=== PATIENT | female | born 1955 | race Caucasian/White ===

== ENCOUNTER → 2017-10-05 | Outpatient (CLI) | payer OTHER ==
[2017-10-05 15:15] LABS: ABSOLUTE BASOPHILS # (AUTO) 0.1 10^3/uL (0.0-0.2); ABSOLUTE EOSINOPHILS # (AUTO) 0.2 10^3/uL (0.0-0.6); ABSOLUTE LYMPHOCYTES (AUTO) 1.4 10^3/uL (0.5-4.7); ABSOLUTE MONOCYTES (AUTO) 0.4 10^3/uL (0.1-1.4); ABSOLUTE NEUT (AUTO) 2.1 10^3/uL (1.7-8.2); BASOPHILS % (AUTO) 1.7 % (0-2); EOSINOPHILS % (AUTO) 4.2 % (0-6); HEMATOCRIT 36.1 % (36.0-47.0); LYMPHOCYTES % (AUTO) 33.5 % (13-45); MEAN CORPUSCULAR HEMOGLOBIN 28.9 pg (27.0-33.4); MEAN CORPUSCULAR HGB CONC 33.2 g/dL (32.0-36.0); MEAN CORPUSCULAR VOLUME 87 fl (80-97); MONOCYTES % (AUTO) 9.5 % (3-13); PLATELET COUNT 235 10^3/uL (150-450); RED BLOOD COUNT 4.15 10^6/uL (3.72-5.28); RED CELL DISTRIBUTION WIDTH 12.7 % (11.5-14.0); SEGMENTED NEUTROPHILS % (AUTO) 51.1 % (42-78); TOTAL CELLS COUNTED % (AUTO) 100 %; WHITE BLOOD COUNT 4.1 10^3/uL (4.0-10.5)
[2017-10-05 15:29] LABS: ANION GAP 11 (5-19); BLOOD UREA NITROGEN 24 mg/dL (7-20); CALCIUM 9.7 mg/dL (8.4-10.2); CARBON DIOXIDE 30 mmol/L (22-30); CHLORIDE 103 mmol/L (98-107); GLUCOSE 93 mg/dL (75-110); POTASSIUM 4.6 mmol/L (3.6-5.0); SODIUM 143.5 mmol/L (137-145)
[2017-10-05 15:31] LABS: AMORPHOUS SEDIMENT,URINE TRACE /HPF; APPEARANCE,URINE SLIGHTLY-CLOUDY; BILIRUBIN,URINE NEGATIVE (NEGATIVE); COLOR,URINE YELLOW; GLUCOSE, URINE NEGATIVE (NEGATIVE); KETONES,URINE NEGATIVE (NEGATIVE); LEUKOCYTE ESTERASE,URINE MODERATE (NEGATIVE); NITRITE,URINE NEGATIVE (NEGATIVE); PROTEIN,URINE NEGATIVE (NEGATIVE); URINE SPECIFIC GRAVITY 1.025; UROBILINOGEN,URINE NEGATIVE mg/dL (<2.0)
--- NOTE | 2017-10-05 15:43 | RADIOLOGY REPORT (SQ) ---
EXAM DESCRIPTION: CHEST PA/LATERAL COMPLETED DATE/TIME: 10/05/2017 2:33 pm REASON FOR STUDY: PRE OP COMPARISON: None. EXAM PARAMETERS: NUMBER OF VIEWS: two views TECHNIQUE: Digital Frontal and Lateral radiographic views of the chest acquired. RADIATION DOSE: NA LIMITATIONS: none FINDINGS: LUNGS AND PLEURA: No opacities, masses or pneumothorax. No pleural effusion. MEDIASTINUM AND HILAR STRUCTURES: No masses or contour abnormalities. HEART AND VASCULAR STRUCTURES: Heart normal size. No evidence for failure. BONES: No acute findings. HARDWARE: None in the chest. OTHER: No other significant finding. IMPRESSION: NO SIGNIFICANT RADIOGRAPHIC FINDING IN THE CHEST. TECHNICAL DOCUMENTATION: JOB ID: [id number] [employer]- All Rights Reserved
--- NOTE | 2017-10-05 18:38 | EKG REPORT ---
SEVERITY:- NORMAL ECG - SINUS RHYTHM : Confirmed by: Riley Colunga MD 05-Oct-2017 18:38:24
== END ==
LOC: OD 13:23
PROVIDERS: ATTEND Orthopaedic Surgery
DX: Z01.818 Encounter for other preprocedural examination (principal)
CPT/HCPCS: 36415; 71046; 80048; 81001; 85025; 93005; 93010

== ENCOUNTER 2017-10-17 08:06 | Inpatient (IN) | payer OTHER ==
[~2017-10-17 08:06] MED LIST: BUPIVACAINE INJ/PF LIPOSOME/PF 266 MG/20 ML SDV ONE; CEFAZOLIN 2 GM/D5W RTU 2 GM/50 ML RTUPB IV PRN; DEXAMETHASONE SOD PHOSPHATE INJ 4 MG/1 ML VIAL ONE; GLYCOPYRROLATE INJ 0.4 MG/2 ML VIAL ONE; LACTATED RINGERS 1000 ML IV PRN; LIDOCAINE 0.5% INJ-PF (5 MG/ML) 50 ML SDV SUBCUT PRN; PHENYLEPHRINE HCL INJ/PF 10 MG/1 ML SDV ONE; SUCCINYLCHOLINE CHLORIDE INJ 200 MG/10 ML VIAL ONE
[2017-10-17] MEDS ORDERED: FENTANYL CITRATE INJ/PF 100 MCG/2 ML AMPUL ONE (10:04)
[2017-10-17] MEDS ORDERED: EPHEDRINE SULFATE INJ 50 MG/1 ML AMPULE ONE (10:04)
[2017-10-17] MEDS ORDERED: MIDAZOLAM 2 MG/2 ML INJ ONE (10:04)
[2017-10-17] MEDS ORDERED: HYDROMORPHONE HCL INJ/PF 2 MG/ML AMPULE ONE (10:04)
[2017-10-17] MEDS ORDERED: PROPOFOL INJ 200 MG/20 ML VIAL IV ONE (10:05)
[2017-10-17] MEDS ORDERED: TRANEXAMIC ACID INJ/PF 1,000 MG/10 ML SDV IV ONE (10:05)
[2017-10-17] MEDS ORDERED: OXYCODONE-ACETAMINOPHEN 5-325 MG TABLET PO PRN ×2 (11:29)
[2017-10-17] MEDS ORDERED: MEPERIDINE HCL/PF INJ 25 MG/1 ML DISP.SYRIN IV PRN (11:29)
[2017-10-17] MEDS ORDERED: PROMETHAZINE HCL INJ 25 MG/1 ML VIAL IV PRN ×2 (11:29)
[2017-10-17] MEDS ORDERED: DIPHENHYDRAMINE HCL 50 MG/ML VIAL IV PRN ×2 (11:29→13:26)
[2017-10-17] MEDS ORDERED: FENTANYL CITRATE INJ/PF 100 MCG/2 ML AMPUL IV PRN ×3 (11:29)
[2017-10-17] MEDS ORDERED: ONDANSETRON HCL INJ/PF 4 MG/2 ML SDV IV PRN (11:29)
[2017-10-17] MEDS ORDERED: MORPHINE SULFATE 10 MG/ML INJ IV PRN ×3 (11:29→13:26)
[2017-10-17] MEDS ORDERED: MORPHINE SULFATE 10 MG/ML INJ IM PRN (13:26)
[2017-10-17] MEDS ORDERED: ONDANSETRON 4 MG TAB.RAPDIS PO PRN (13:26)
--- NOTE | 2017-10-17 13:26 | Operative Report ---
Operative Report DATE OF SURGERY: 10/17/17 PREOPERATIVE DIAGNOSIS: Right rotator cuff arthropathy POSTOPERATIVE DIAGNOSIS: Same OPERATION: Right reverse total shoulder arthroplasty SURGEON: SHEREE ESTRADA ANESTHESIA: GA COMPLICATIONS: None ESTIMATED BLOOD LOSS: 300cc PROCEDURE: Indication for above procedure: Pleasant 62-year-old female who underwent rotator cuff repair in the past for right shoulder discomfort. She continues to have discomfort with significant degenerative changes consistent with rotator cuff arthropathy on radiographs. We discussed these findings and treatment options. Patient failed conservative management and thus decision was made to proceed with operative intervention. Risks and benefits were explained to the patient patient verbalized understanding consented for the procedure. Procedure In Detail: Patient was seen and evaluated in the preoperative holding area. The RIGHT upper extremity was initialized and marked. Patient received 2g of Ancef IV for bacterial prophylaxis. Patient was taken back to the operative room where transferred to the operative table and placed under general anesthesia. Once they were adequately anesthetized patient was placed in the beachchair position. Bilateral lower extremities and left upper extremity were carefully padded and the cervical spine placed in neutral position.. A surgical team debriefing was performed ensuring all instrumentation was available, the surgical procedure was discussed with possible concerns reviewed. The upper extremity was prepped with ChloraPrep and draped in a sterile fashion. A timeout was done identifying correct patient, procedure and extremity everyone in attendance agree with this and verbalized no concerns. Deltopectoral interval was utilized with the skin incision just proximal to the coracoid and towards the distal lateral third of the humerus. Blunt dissection was performed. The cephalic vein was identified and retracted in a lateral direction. A small peripheral bleeding was coagulated with cautery. Patient has significant superior migration of the humerus. I then developed the subdeltoid space to allow for easy retraction. The axillary nerve was palpated medially and protected throughout the entirety of the case. 3 peripheral bleeders along the humeral neck were identified and coagulated with cautery. I then released the subscapularis muscle tagging it medially with 2-0 FiberWire suture to allow for later repair. The biceps tendon was identified and removed and a soft tissue tenodesis was performed proximally. The proximal centimeter of the pectoralis major was released to allow for easy exposure. The humerus was then exposed. Patient had complete rotator cuff loss. Previous suture anchors were removed. I then reamed up to an 8 stock handler. The cutting jig was then secured with 30 of retroversion and the humeral head excised and sent to pathology. I then proceeded with broaching up to an size 8 broach. There was this was then removed and the wound copiously irrigated with normal saline I proceeded with exposure of the glenoid. Capsulotomy was made with special care protecting the inferior portion of the glenoid neck where the axillary nerve was identified. Once I released the capsule circumferentially the labrum was excised including any remnant biceps tendon insertion. I then used the bike met the central portion of the glenoid was then drilled with the guidepin. The glenoid was reamed until adequate cancellus bone along the inferior portion. The mini baseplate was chosen and impacted into position. I had good secure fit of the baseplate at the glenoid. The central guide hole was then drilled and the appropriate size compression screw placed obtaining excellent fixation. I then completed fixation with 3 additional locking screws superior, inferior and posterior. The size 36 mm glenosphere was then impacted into position. With a hemostat ensured appropriate fit no loosening. The wound was then copiously irrigated with normal saline once again I proceeded with humeral preparation. Once again a 8 mm stem was chosen but given patient's significant osteopenia proximally I chose a standard 8 mm x 122 mm primary shoulder strength. And trialed a 44 mm standard humeral tray. Patient had excellent stability with full passive motion forward flexion abduction no evidence of impingement. Thus a standard 44 mm tray was impacted. The wound was then copiously irrigated with Arisept. Any bleeding was controlled until the wound was dry. Subscapularis was secured with bone tunnels through the humerus and through the remanent subscapularis with 2-0 FiberWire. There is good stability of the subscapularis up to 50 of external rotation. 40 cc of 50: 50 mixture of saline and Exparel were injected in the soft tissues. The deltopectoral interval was closed with interrupted 0 Vicryl suture. Subcutaneous tissues closed with 2-0 Vicryl suture. Skin closed with running subcuticular 3-0 Monocryl reinforced with Dermabond and Steri-Strips. Sponge counts, instrument counts, needle counts counts were correct. Patient was then awoken from anesthesia. Transferred from the operating room table to the operating room stretcher. There was no intraoperative complications patient tolerated procedure well stable to PACU. Postoperative plan: Patient will be admitted for observation and follow-up in the office 2 weeks postoperatively. Will obtain radiographs in the office. Patient will be started on enteric-coated aspirin 325 mg daily for DVT prophylaxis as an outpatient and Xarelto as an inpatient. IMPLANTS: Biomet comprehensive reverse total shoulder: Primary stem 8 mm x 122 mm, humeral tray with locking ring 44 mm standard, humeral bearing glenosphere 44 mm , 36 mm of curvature with mini baseplate.
[2017-10-17] MEDS ORDERED: RINGERS SOLUTION,LACTATED 1,000 ML IV PRN ×2 (13:28→17:42)
[2017-10-17] MEDS: FENTANYL CITRATE INJ/PF 100 MCG/2 ML AMPUL ONE ×2 (14:00→14:05)
--- NOTE | 2017-10-17 15:18 | RADIOLOGY REPORT (SQ) ---
EXAM DESCRIPTION: SHOULDER RIGHT 2 OR MORE VIEWS COMPLETED DATE/TIME: 10/17/2017 2:53 pm REASON FOR STUDY: Total Shoulder M19.111 POST-TRAUMATIC OSTEOARTHRITIS, RIGHT SHOULDER COMPARISON: Two-view chest 10/05/2017 NUMBER OF VIEWS: AP and Y-view TECHNIQUE: AP and Y-view images acquired of the right shoulder. LIMITATIONS: Artifact from shoulder brace FINDINGS: Post right shoulder arthroplasty, anchoring screws into the bony glenoid, non cemented hum eral prosthesis. Grossly normal alignment. No fracture. Small amount of soft tissue gas present. There is right basilar atelectasis. Ribs are osteopenic without acute fracture. IMPRESSION: Post right shoulder arthroplasty TECHNICAL DOCUMENTATION: JOB ID: [id number] [employer]- All Rights Reserved
[2017-10-17] MEDS: CEFAZOLIN 2 GM/D5W RTU 2 GM/50 ML RTUPB IV SCH (17:44)
[2017-10-17] MEDS: KETOROLAC TROMETHAMINE INJ/PF 30 MG/1 ML SDV IV SCH (17:44)
[2017-10-17] MEDS ORDERED: NORMAL SALINE 1000 ML 1,000 ML IV ONE (17:45)
[2017-10-17] MEDS: PREGABALIN 75 MG CAPSULE PO SCH (17:45)
[2017-10-17] MEDS ORDERED: CELECOXIB 200 MG CAPSULE PO SCH (18:00)
[2017-10-17] MEDS ORDERED: ACETAMINOPHEN 100 ML IV ONE (19:26)
[2017-10-17] MEDS: OXYCODONE HCL SR 10 MG TABLET PO SCH (21:15)
[2017-10-17] MEDS: CELECOXIB 200 MG CAPSULE PO SCH (21:17)
[2017-10-17] MEDS: RIVAROXABAN 10 MG TABLET PO SCH (21:18)
[2017-10-18] MEDS: KETOROLAC TROMETHAMINE INJ/PF 30 MG/1 ML SDV IV SCH ×4 (00:17→18:03)
[2017-10-18] MEDS: CEFAZOLIN 2 GM/D5W RTU 2 GM/50 ML RTUPB IV SCH ×3 (00:18→11:15)
[2017-10-18] MEDS: MORPHINE SULFATE 10 MG/ML INJ IV PRN ×2 (01:18→04:11)
[2017-10-18] MEDS: LANSOPRAZOLE 30 MG TAB.RAP.DR PO SCH (06:22)
--- NOTE | 2017-10-18 07:12 | PDOC PROGRESS REPORT ---
Subjective Progress Note for:: 10/18/17 Subjective:: 62-year-old white female one day status post total right shoulder arthroplasty. Patient lying recumbent in hospital bed this morning with ice compression device on right shoulder. Patient reports she had a difficult night with pain but is feeling better now. She is asking when she can go home. Reason For Visit: STATUS POST TOTAL SHOULDER ARTHROPLASTY Physical Exam Vital Signs: Temp Pulse Resp BP Pulse Ox 36.8 C 83 16 133/69 H 100 10/18/17 04:32 10/18/17 04:32 10/18/17 04:32 10/18/17 04:32 10/18/17 04:32 Intake & Output 10/17/17 10/18/17 10/19/17 06:59 06:59 06:59 Intake Total 3736 Output Total 3200 Balance 536 Weight 92.5 kg General appearance: PRESENT: no acute distress, well-developed, well-nourished Head exam: PRESENT: atraumatic, normocephalic Respiratory exam: PRESENT: unlabored Additional comments: Nasal cannula in place. Pulses: PRESENT: normal dorsalis pedis pul, +2 pedal pulses bilateral Vascular exam: PRESENT: normal capillary refill Additional comments: Patient lying recumbent in hospital bed with ice compression device placed on right shoulder. She has +2 radial pulses and brisk capillary refill to bilateral upper extremities. Her arm lengths are equal and her distal neurovascular exam is intact. Additional comments: Due to nature of total shoulder arthroplasty patient may benefit from occupational therapy postoperatively. Neurological exam: PRESENT: alert, awake, oriented to person, oriented to place , oriented to time, oriented to situation, CN II-XII grossly intact. ABSENT: motor sensory deficit Psychiatric exam: PRESENT: appropriate affect, normal mood. ABSENT: homicidal ideation, suicidal ideation Skin exam: PRESENT: dry, intact, warm. ABSENT: cyanosis, rash Results Impressions: Shoulder X-Ray 10/17/17 00:00 IMPRESSION: Post right shoulder arthroplasty Assessment & Plan - Diagnosis (1) Arthritis of right shoulder region Is this a current diagnosis for this admission?: Yes - Plan Summary Plan Summary: 62-year-old white female one day status post right total shoulder arthroplasty. Patient lying comfortably in hospital bed this morning reporting she had some difficulty with pain however feels better now. She can be discharged to her home today. Patient would likely benefit from occupational therapy for the right shoulder status post right total shoulder arthroplasty. She will follow- up with Dr. Yuan at [facility] for surgery 2 weeks postoperatively for staple removal and reevaluation.
[2017-10-18 07:28] LABS: HEMATOCRIT 29.5 % (36.0-47.0); HEMOGLOBIN 9.7 g/dL (12.0-15.5); MEAN CORPUSCULAR HEMOGLOBIN 28.7 pg (27.0-33.4); MEAN CORPUSCULAR VOLUME 87 fl (80-97); PLATELET COUNT 132 10^3/uL (150-450); RED BLOOD COUNT 3.39 10^6/uL (3.72-5.28); RED CELL DISTRIBUTION WIDTH 13.1 % (11.5-14.0); WHITE BLOOD COUNT 7.5 10^3/uL (4.0-10.5)
[2017-10-18] MEDS: OXYCODONE HCL IR 5 MG TABLET PO PRN ×2 (09:06→15:33)
[2017-10-18] MEDS: OXYCODONE HCL SR 10 MG TABLET PO SCH ×2 (10:16→21:26)
[2017-10-18] MEDS: PREGABALIN 75 MG CAPSULE PO SCH ×2 (10:16→18:16)
[2017-10-18] MEDS: CELECOXIB 200 MG CAPSULE PO SCH ×2 (10:19→21:27)
[2017-10-18 10:52] LABS: ANION GAP 6 (5-19); BLOOD UREA NITROGEN 20 mg/dL (7-20); CALCIUM 8.8 mg/dL (8.4-10.2); CARBON DIOXIDE 29 mmol/L (22-30); CHLORIDE 103 mmol/L (98-107); GLUCOSE 127 mg/dL (75-110); POTASSIUM 3.9 mmol/L (3.6-5.0); SODIUM 138.1 mmol/L (137-145)
[2017-10-18] MEDS: RIVAROXABAN 10 MG TABLET PO SCH (21:28)
[2017-10-19] MEDS: KETOROLAC TROMETHAMINE INJ/PF 30 MG/1 ML SDV IV SCH ×3 (01:23→11:09)
[2017-10-19] MEDS: LANSOPRAZOLE 30 MG TAB.RAP.DR PO SCH (05:17)
[2017-10-19] MEDS: OXYCODONE HCL IR 5 MG TABLET PO PRN (05:23)
[2017-10-19 07:36] LABS: HEMATOCRIT 24.9 % (36.0-47.0); HEMOGLOBIN 8.5 g/dL (12.0-15.5); MEAN CORPUSCULAR HEMOGLOBIN 29.2 pg (27.0-33.4); MEAN CORPUSCULAR HGB CONC 34.1 g/dL (32.0-36.0); MEAN CORPUSCULAR VOLUME 86 fl (80-97); PLATELET COUNT 144 10^3/uL (150-450); RED BLOOD COUNT 2.91 10^6/uL (3.72-5.28); WHITE BLOOD COUNT 6.3 10^3/uL (4.0-10.5)
[2017-10-19] MEDS: OXYCODONE HCL SR 10 MG TABLET PO SCH (09:47)
[2017-10-19] MEDS: PREGABALIN 75 MG CAPSULE PO SCH (09:48)
[2017-10-19] MEDS: CELECOXIB 200 MG CAPSULE PO SCH (09:48)
--- NOTE | 2017-10-19 09:55 | PDOC PROGRESS REPORT ---
Subjective Progress Note for:: 10/19/17 Subjective:: Patient's pain is better controlled this morning. Did require straight cath yesterday but since then has been able to urinate on her own couple times. She is ready to go home today Reason For Visit: STATUS POST TOTAL SHOULDER ARTHROPLASTY Physical Exam Vital Signs: Temp Pulse Resp BP Pulse Ox 37.0 C 92 18 132/77 H 98 10/19/17 07:35 10/19/17 07:35 10/19/17 07:35 10/19/17 07:35 10/19/17 07:35 Intake & Output 10/18/17 10/19/17 10/20/17 06:59 06:59 06:59 Intake Total 3736 3980 240 Output Total 3400 1550 400 Balance 336 2430 -160 Weight 92.5 kg 93 kg General appearance: PRESENT: no acute distress Head exam: PRESENT: atraumatic - He has Adult Front & Back Image: 1 - OpSite dressing is dry clean and intact. Sling is in proper place. She has good sensation to light touch and good motor 5 out of 5 of the radial/ulnar/ median nerve distribution. Good sensation over the sergeants patch. Results Laboratory Results: 10/19/17 07:16 10/18/17 10:02 10/18/17 10/19/17 10:02 07:16 WBC 6.3 RBC 2.91 L Hgb 8.5 L Hct 24.9 L MCV 86 MCH 29.2 MCHC 34.1 RDW 13.0 Plt Count 144 L Sodium 138.1 Potassium 3.9 Chloride 103 Carbon Dioxide 29 Anion Gap 6 BUN 20 Creatinine 0.64 Est GFR ( Amer) > 60 Est GFR (Non-Af Amer) > 60 Glucose 127 H Calcium 8.8 Impressions: Shoulder X-Ray 10/17/17 00:00 IMPRESSION: Post right shoulder arthroplasty Assessment & Plan - Plan Summary Plan Summary: 62-year-old female postop day 2 from right reverse total shoulder arthroplasty. Patient instructed to use sling and do pendulum exercises. Instructed to keep the dressing on for 5 days and then removed. Patient instructed to follow-up in [address] Yuan
[2017-10-19 10:41] VITALS: BP 111/56
--- NOTE | 2018-01-06 23:19 | PDOC DISCHARGE SUMMARY ---
General - Admit/Disc Date/PCP Admission Date/Primary Care Provider: 10/17/17 08:06 Discharge Date: 10/19/17 - Discharge Diagnosis (1) Arthritis of right shoulder region Is this a current diagnosis for this admission?: Yes - Additional Information Discharge Diet: As Tolerated Discharge Activity: No Lifting Over 10 Pounds, No Lifting/Push/Pulling Prescriptions: Aspirin [Aspirin 325 mg Tablet] 325 mg PO DAILY #21 tablet Oxycodone HCl/Acetaminophen [Percocet 7.5-325 mg Tablet] 1 - 2 tab PO ASDIR PRN #40 tab PRN Reason: Home Medications: Aripiprazole [Abilify] 20 mg PO QAM 10/11/17 Gabapentin Enacarbil [Horizant] 600 mg PO BID 10/11/17 Meloxicam 15 mg PO QAM 10/11/17 Paroxetine HCl [Paxil] 10 mg PO QAM 10/11/17 Trazodone HCl 200 mg PO QHS 10/11/17 Aspirin [Aspirin 325 mg Tablet] 325 mg PO DAILY #21 tablet 10/17/17 Oxycodone HCl/Acetaminophen [Percocet 7.5-325 mg Tablet] 1 - 2 tab PO ASDIR PRN #40 tab 10/17/17 History of Present Illness Patient complains of: right shoulder arthritis History of Present Illness: YOSELYN ELLISON is a 63 year old female with progressive pain and decrease in functional mobility due to arthritis of the right shoulder. She is admitted to the hospital through the OR for elective reverse total right shoulder arthroplasty. Hospital Course Hospital Course: 63 year old white female who is admitted to the hospital through the OR to undergo elective reverse total right shoulder arthroplasty. The surgery has no complications and she is taken to PACU in satifactory condition. She is transfered to the surgical floor where she is seen by nursing staff and Dr. Yuan for pain control. She remained comfortable and her pain was well managed. She was discharged to her home on 10/19/2017 and was instructed to complete gentle ROM of right upper extremity and pendulum exercises. Physical Exam Vital Signs: Temp Pulse Resp BP Pulse Ox 37.0 C 92 18 111/56 L 98 10/19/17 10:38 10/19/17 10:38 10/19/17 10:38 10/19/17 10:38 10/19/17 10:38 Physical Exam: Physical exam grossly unchanged from exam completed on 10/18/2017 General appearance: PRESENT: no acute distress, well-developed, well-nourished Head exam: PRESENT: atraumatic, normocephalic Eye exam: PRESENT: EOMI Mouth exam: PRESENT: moist Respiratory exam: PRESENT: unlabored Pulses: PRESENT: normal dorsalis pedis pul, +2 pedal pulses bilateral Vascular exam: PRESENT: normal capillary refill Additional comments: right upper extremity placed in cross body sling. Post operative dressing clean , dry and intact. This was left in place. No sensory or motor deficits noted. Musculoskeletal exam: PRESENT: ambulatory Additional comments: Patient was instructed to continue wearing cross body sling and initiate gentle ROM and pendulum exercises. Neurological exam: PRESENT: alert, awake, oriented to person, oriented to place , oriented to time, oriented to situation, CN II-XII grossly intact. ABSENT: motor sensory deficit Psychiatric exam: PRESENT: appropriate affect, normal mood. ABSENT: homicidal ideation, suicidal ideation Skin exam: PRESENT: dry, intact, warm. ABSENT: cyanosis, rash Results Laboratory Results: 10/19/17 07:16 10/18/17 10:02 Impressions: Shoulder X-Ray 10/17/17 00:00 IMPRESSION: Post right shoulder arthroplasty Qualifiers - * PATEINT BEING DISCHARGED WITH ANY OF THE FOLLOWING DIAGNOSIS?: No Plan Discharge Plan: 63 yo white female s/p right reverse total shoulder arthroplasty. Patient did very well post-operatively and her pain was well managed. She was instructed to wear cross body sling and initiate gentle ROM exercises. She was discharged from the hospital to her home. She was instructed to follow up with Dr. Yuan at [facility] for Surgery 2 weeks postoperatively. Time Spent: Less than 30 Minutes
== END 2017-10-19 12:30 | disposition home or self-care (01) | DRG 483 ==
LOC: INTOOBSV 08:06 → INOR 08:06 → OBSVTOIN 08:06 → 2N 15:10
PROVIDERS: ADMIT Orthopaedic Surgery; ATTEND Orthopaedic Surgery
PROC: 0LS30ZZ Reposition Right Upper Arm Tendon, Open Approach (ICD-10-PCS; 2017-10-17)
PROC: 0RPJ04Z Removal of Internal Fixation Device from Right Shoulder Joint, Open Approach (ICD-10-PCS; 2017-10-17)
PROC: 0RRJ00Z Replacement of Right Shoulder Joint with Reverse Ball and Socket Synthetic Substitute, Open Approach (ICD-10-PCS; principal; 2017-10-17 10:15)
DX: M19.111 Post-traumatic osteoarthritis, right shoulder (principal); M85.811 Other specified disorders of bone density and structure, right shoulder; F43.10 Post-traumatic stress disorder, unspecified; Z98.890 Other specified postprocedural states; Z79.899 Other long term (current) drug therapy; Z79.1 Long term (current) use of non-steroidal anti-inflammatories (NSAID); Z88.3 Allergy status to other anti-infective agents
CPT/HCPCS: 01638; 36415; 80048; 85027; 88304; 88311; C9290; J0131; J0330; J0690; J1100; J1170; J1885; J2250; J2270; J2370; J2704; J3010; J3490; J7030; J7120